=== PATIENT | female | born 1930 | race Caucasian/White ===

== ENCOUNTER 2016-03-06 12:57 | Outpatient (CLI) | payer MEDICARE, OTHER | END 2016-03-06 12:58 | disposition home or self-care (01) | DX: I82.502 Chronic embolism and thrombosis of unspecified deep veins of left lower extremity (principal); Z79.01 Long term (current) use of anticoagulants ==

== ENCOUNTER 2016-04-02 13:15 | Outpatient (CLI) | payer MEDICARE, OTHER | END 2016-04-02 13:16 | disposition home or self-care (01) | DX: I82.502 Chronic embolism and thrombosis of unspecified deep veins of left lower extremity (principal); Z79.01 Long term (current) use of anticoagulants ==

== ENCOUNTER 2016-05-21 12:34 | Outpatient (CLI) | payer MEDICARE, OTHER | END 2016-05-21 12:35 | disposition home or self-care (01) | DX: I82.502 Chronic embolism and thrombosis of unspecified deep veins of left lower extremity (principal); Z79.01 Long term (current) use of anticoagulants ==

== ENCOUNTER 2016-07-02 13:23 | Outpatient (CLI) | payer MEDICARE, OTHER | END 2016-07-02 13:24 | disposition home or self-care (01) | DX: I82.502 Chronic embolism and thrombosis of unspecified deep veins of left lower extremity (principal); Z79.01 Long term (current) use of anticoagulants ==

== ENCOUNTER 2016-08-17 12:41 | Outpatient (CLI) | payer MEDICARE, OTHER | END 2016-08-17 12:42 | disposition home or self-care (01) | LOC: LAB.F 12:41 | PROVIDERS: ATTEND Internal Medicine | DX: I82.502 Chronic embolism and thrombosis of unspecified deep veins of left lower extremity (principal) | CPT/HCPCS: 85610 ==

== ENCOUNTER 2016-10-02 11:06 | Outpatient (CLI) | payer MEDICARE, OTHER | END 2016-10-02 11:07 | disposition home or self-care (01) | LOC: LAB.F 11:06 | PROVIDERS: ATTEND Internal Medicine | DX: I82.502 Chronic embolism and thrombosis of unspecified deep veins of left lower extremity (principal) | CPT/HCPCS: 85610 ==

== ENCOUNTER 2016-10-10 11:31 | Outpatient (CLI) | payer MEDICARE, OTHER | END 2016-10-10 11:32 | disposition home or self-care (01) | LOC: LAB.F 11:31 | PROVIDERS: ATTEND Internal Medicine | DX: I82.502 Chronic embolism and thrombosis of unspecified deep veins of left lower extremity (principal); Z79.01 Long term (current) use of anticoagulants | CPT/HCPCS: 85610 ==

== ENCOUNTER 2016-11-14 10:55 | Outpatient (CLI) | payer MEDICARE, OTHER | END 2016-11-14 10:56 | disposition home or self-care (01) | LOC: LAB.F 10:55 | PROVIDERS: ATTEND Internal Medicine | DX: I82.502 Chronic embolism and thrombosis of unspecified deep veins of left lower extremity (principal); Z79.01 Long term (current) use of anticoagulants | CPT/HCPCS: 85610 ==

== ENCOUNTER 2017-01-02 13:39 | Outpatient (CLI) | payer MEDICARE, OTHER | END 2017-01-02 13:40 | disposition home or self-care (01) | LOC: LAB.F 13:39 | PROVIDERS: ATTEND Internal Medicine | DX: I82.502 Chronic embolism and thrombosis of unspecified deep veins of left lower extremity (principal); Z79.01 Long term (current) use of anticoagulants | CPT/HCPCS: 85610 ==

== ENCOUNTER 2017-01-28 13:28 | Outpatient (CLI) | payer MEDICARE, OTHER | END 2017-01-28 13:29 | disposition home or self-care (01) | LOC: LAB.F 13:28 | PROVIDERS: ATTEND Internal Medicine | DX: I82.502 Chronic embolism and thrombosis of unspecified deep veins of left lower extremity (principal); Z79.01 Long term (current) use of anticoagulants | CPT/HCPCS: 85610 ==

== ENCOUNTER 2017-02-05 12:31 | Outpatient (CLI) | payer MEDICARE, OTHER | END 2017-02-05 12:32 | disposition home or self-care (01) | LOC: LAB.F 12:31 | PROVIDERS: ATTEND Internal Medicine | DX: I82.502 Chronic embolism and thrombosis of unspecified deep veins of left lower extremity (principal); Z79.01 Long term (current) use of anticoagulants | CPT/HCPCS: 85610 ==

== ENCOUNTER 2017-02-11 13:38 | Outpatient (CLI) | payer MEDICARE, OTHER | END 2017-02-11 13:39 | disposition home or self-care (01) | LOC: LAB.F 13:38 | PROVIDERS: ATTEND Internal Medicine | DX: I82.502 Chronic embolism and thrombosis of unspecified deep veins of left lower extremity (principal); Z79.01 Long term (current) use of anticoagulants | CPT/HCPCS: 85610 ==

== ENCOUNTER 2017-03-15 13:06 | Outpatient (CLI) | payer MEDICARE, OTHER | END 2017-03-15 13:07 | disposition home or self-care (01) | LOC: LAB.F 13:06 | PROVIDERS: ATTEND Internal Medicine | DX: I82.502 Chronic embolism and thrombosis of unspecified deep veins of left lower extremity (principal); Z79.01 Long term (current) use of anticoagulants | CPT/HCPCS: 85610 ==

== ENCOUNTER 2017-04-01 13:58 | Outpatient (CLI) | payer MEDICARE, OTHER | END 2017-04-01 13:59 | disposition home or self-care (01) | LOC: LAB.F 13:58 | PROVIDERS: ATTEND Internal Medicine | DX: I82.502 Chronic embolism and thrombosis of unspecified deep veins of left lower extremity (principal); Z79.01 Long term (current) use of anticoagulants | CPT/HCPCS: 85610 ==

== ENCOUNTER 2017-05-07 13:35 | Outpatient (CLI) | payer MEDICARE, OTHER | END 2017-05-07 13:36 | disposition home or self-care (01) | LOC: LAB.F 13:35 | PROVIDERS: ATTEND Internal Medicine | DX: I82.502 Chronic embolism and thrombosis of unspecified deep veins of left lower extremity (principal); Z79.01 Long term (current) use of anticoagulants | CPT/HCPCS: 85610 ==

== ENCOUNTER 2017-05-13 13:04 | Outpatient (CLI) | payer MEDICARE, OTHER | END 2017-05-13 13:05 | disposition home or self-care (01) | LOC: LAB.F 13:04 | PROVIDERS: ATTEND Internal Medicine | DX: I82.502 Chronic embolism and thrombosis of unspecified deep veins of left lower extremity (principal); Z79.01 Long term (current) use of anticoagulants | CPT/HCPCS: 85610 ==

== ENCOUNTER 2017-06-14 12:59 | Outpatient (CLI) | payer MEDICARE, OTHER | END 2017-06-14 13:00 | disposition home or self-care (01) | LOC: LAB.F 12:59 | PROVIDERS: ATTEND Internal Medicine | DX: I82.502 Chronic embolism and thrombosis of unspecified deep veins of left lower extremity (principal); Z79.01 Long term (current) use of anticoagulants | CPT/HCPCS: 85610 ==

== ENCOUNTER 2017-07-24 14:21 | Outpatient (CLI) | payer MEDICARE, OTHER | END 2017-07-24 14:22 | disposition home or self-care (01) | LOC: LAB.F 14:21 | PROVIDERS: ATTEND Internal Medicine | DX: I82.502 Chronic embolism and thrombosis of unspecified deep veins of left lower extremity (principal); Z79.01 Long term (current) use of anticoagulants | CPT/HCPCS: 85610 ==

== ENCOUNTER 2017-08-29 11:25 | Outpatient (CLI) | payer MEDICARE, OTHER | END 2017-08-29 11:26 | disposition home or self-care (01) | LOC: LAB.F 11:25 | PROVIDERS: ATTEND Internal Medicine | DX: I82.502 Chronic embolism and thrombosis of unspecified deep veins of left lower extremity (principal); Z79.01 Long term (current) use of anticoagulants | CPT/HCPCS: 85610 ==

== ENCOUNTER 2017-10-17 13:37 | Outpatient (CLI) | payer MEDICARE, OTHER | END 2017-10-17 13:38 | disposition home or self-care (01) | LOC: LAB.F 13:37 | PROVIDERS: ATTEND Internal Medicine | DX: I82.502 Chronic embolism and thrombosis of unspecified deep veins of left lower extremity (principal); Z79.01 Long term (current) use of anticoagulants | CPT/HCPCS: 85610 ==

== ENCOUNTER 2017-10-25 11:01 | Outpatient (CLI) | payer MEDICARE, OTHER | END 2017-10-25 11:02 | disposition home or self-care (01) | LOC: LAB.F 11:01 | PROVIDERS: ATTEND Internal Medicine | DX: I82.502 Chronic embolism and thrombosis of unspecified deep veins of left lower extremity (principal); Z79.01 Long term (current) use of anticoagulants | CPT/HCPCS: 85610 ==

== ENCOUNTER 2017-11-05 08:00 | Outpatient (CLI) | payer MEDICARE, OTHER | END 2017-11-05 08:01 | disposition home or self-care (01) | LOC: LAB.F 08:00 | PROVIDERS: ATTEND Internal Medicine | DX: I82.502 Chronic embolism and thrombosis of unspecified deep veins of left lower extremity (principal); Z79.01 Long term (current) use of anticoagulants | CPT/HCPCS: 85610 ==

== ENCOUNTER 2017-11-11 12:58 | Outpatient (CLI) | payer MEDICARE, OTHER | END 2017-11-11 12:59 | disposition home or self-care (01) | LOC: LAB.F 12:58 | PROVIDERS: ATTEND Internal Medicine | DX: I82.502 Chronic embolism and thrombosis of unspecified deep veins of left lower extremity (principal); Z79.01 Long term (current) use of anticoagulants | CPT/HCPCS: 85610 ==

== ENCOUNTER 2017-12-23 14:13 | Outpatient (CLI) | payer MEDICARE, OTHER | END 2017-12-23 14:14 | disposition home or self-care (01) | LOC: LAB.F 14:13 | PROVIDERS: ATTEND Internal Medicine | DX: I82.502 Chronic embolism and thrombosis of unspecified deep veins of left lower extremity (principal); Z79.01 Long term (current) use of anticoagulants | CPT/HCPCS: 85610 ==

== ENCOUNTER 2018-01-21 14:06 | Outpatient (CLI) | payer MEDICARE, OTHER | END 2018-01-21 14:07 | disposition home or self-care (01) | LOC: LAB.F 14:06 | PROVIDERS: ATTEND Internal Medicine | DX: I82.502 Chronic embolism and thrombosis of unspecified deep veins of left lower extremity (principal); Z79.01 Long term (current) use of anticoagulants | CPT/HCPCS: 85610 ==

== ENCOUNTER 2018-01-27 14:33 | Outpatient (CLI) | payer MEDICARE, OTHER | END 2018-01-27 14:34 | disposition home or self-care (01) | LOC: LAB.F 14:33 | PROVIDERS: ATTEND Internal Medicine | DX: I82.502 Chronic embolism and thrombosis of unspecified deep veins of left lower extremity (principal); Z79.01 Long term (current) use of anticoagulants | CPT/HCPCS: 85610 ==

== ENCOUNTER 2018-02-03 11:13 | Outpatient (CLI) | payer MEDICARE, OTHER | END 2018-02-03 11:14 | disposition home or self-care (01) | LOC: LAB.F 11:13 | PROVIDERS: ATTEND Internal Medicine | DX: I82.502 Chronic embolism and thrombosis of unspecified deep veins of left lower extremity (principal); Z79.01 Long term (current) use of anticoagulants | CPT/HCPCS: 85610 ==

== ENCOUNTER 2018-02-11 10:28 | Outpatient (CLI) | payer MEDICARE, OTHER | END 2018-02-11 10:29 | disposition home or self-care (01) | LOC: LAB.F 10:28 | PROVIDERS: ATTEND Internal Medicine | DX: I82.502 Chronic embolism and thrombosis of unspecified deep veins of left lower extremity (principal); Z79.01 Long term (current) use of anticoagulants | CPT/HCPCS: 85610 ==

== ENCOUNTER 2018-03-28 13:27 | Outpatient (CLI) | payer MEDICARE, OTHER | END 2018-03-28 13:28 | disposition home or self-care (01) | LOC: LAB.F 13:27 | PROVIDERS: ATTEND Internal Medicine | DX: I82.502 Chronic embolism and thrombosis of unspecified deep veins of left lower extremity (principal); Z79.01 Long term (current) use of anticoagulants | CPT/HCPCS: 85610 ==

== ENCOUNTER 2018-05-26 14:45 | Outpatient (CLI) | payer MEDICARE, OTHER | END 2018-05-26 14:46 | disposition home or self-care (01) | LOC: LAB.F 14:45 | PROVIDERS: ATTEND Internal Medicine | DX: I82.502 Chronic embolism and thrombosis of unspecified deep veins of left lower extremity (principal); Z79.01 Long term (current) use of anticoagulants | CPT/HCPCS: 85610 ==

== ENCOUNTER 2019-08-28 11:52 | Outpatient (CLI) | payer MEDICARE, OTHER ==
[2019-08-28 15:38] LABS: CALCIUM 10.1 mg/dL (8.5-10.3)
== END 2019-08-28 11:53 | disposition home or self-care (01) ==
LOC: LAB.S 11:52
PROVIDERS: ATTEND Internal Medicine
DX: N28.9 Disorder of kidney and ureter, unspecified (principal); Z86.711 Personal history of pulmonary embolism
CPT/HCPCS: 36415; 80048; 85610

== ENCOUNTER 2020-02-12 13:19 | Outpatient (CLI) | payer MEDICARE, OTHER ==
[2020-02-12 19:55] LABS: BASOPHILS # (AUTO) 0.1 10^3/uL (0.0-0.1); BASOPHILS % (AUTO) 0.7 %; EOSINOPHILS # (AUTO) 0.3 10^3/uL (0.0-0.7); EOSINOPHILS % (AUTO) 4.5 %; HGB - HEMOGLOBIN 10.2 g/dL (12.0-16.0); LYMPHOCYTES # (AUTO) 2.1 10^3/uL (1.5-3.5); LYMPHOCYTES % (AUTO) 30.9 %; MEAN CORPUSCULAR HGB CONC 30.1 g/dL (32.0-36.0); MEAN CORPUSCULAR VOLUME 93.1 fL (81.0-99.0); MEAN PLATELET VOLUME 10.2 fL (7.9-10.8); MONOCYTES # (AUTO) 0.5 10^3/uL (0.0-1.0); MONOCYTES % (AUTO) 8.1 %; NEUTROPHILS # (AUTO) 3.7 10^3/uL (1.5-6.6); NEUTROPHILS % (AUTO) 55.5 %; PLT - PLATELET COUNT 269 10^3/uL (130-450); RED BLOOD COUNT 3.64 10^6/uL (4.20-5.40); RED CELL DISTRIBUTION WIDTH 13.2 % (12.0-15.0); WHITE BLOOD COUNT 6.7 x10^3/uL (4.8-10.8)
[2020-02-12 20:21] LABS: % IRON SATURATION 11 % (20-50); IRON 46 ug/dL (28-170); TOTAL IRON BINDING CAPACITY 406 ug/dL (250-450); TRANSFERRIN 290 mg/dL (192-382)
== END 2020-02-12 13:20 | disposition home or self-care (01) ==
LOC: LAB.S 13:19
PROVIDERS: ATTEND Internal Medicine
DX: D64.9 Anemia, unspecified (principal)
CPT/HCPCS: 36415; 82728; 83540; 84466; 85025

== ENCOUNTER 2020-06-19 21:42 | Observation (INO) | payer MEDICARE, OTHER ==
--- OUTSIDE RECORDS SUMMARY | 2020-06-19 21:46 | EXTERNAL MEDICAL SUMMARY RPT | Continuity of Care Document ---
:1930 Demographics Phone Unavailable Preferred Language Unknown Marital Status Unknown Hoahaoism Affiliation Unknown Race Unknown Ethnic Group Unknown Author Organization [facility] Address [address] [phone] Phone Problems date description facility [id number] ABDOMINAL; BACK PAIN [employer] Social History date description facility [id number]
--- OUTSIDE RECORDS SUMMARY | 2020-06-19 21:50 | EXTERNAL MEDICAL SUMMARY RPT | Continuity of Care Document ---
:1930 Demographics Phone Unavailable Preferred Language Unknown Marital Status Unknown Congregational Affiliation Unknown Race Unknown Ethnic Group Unknown Author Organization [facility] Address [address] [phone] Phone Problems date description facility [id number] ABDOMINAL; BACK PAIN [employer] Social History date description facility [id number]
[2020-06-19 22:02] LABS: BILIRUBIN,URINE NEGATIVE (NEGATIVE); GLUCOSE, URINE (UA) NEGATIVE (NEGATIVE); KETONES,URINE (UA) 15 mg/dL (NEGATIVE); LEUKOCYTE ESTERASE, URINE MODERATE (NEGATIVE); NITRITE,URINE NEGATIVE (NEGATIVE); OCCULT BLOOD,URINE LARGE (NEGATIVE); PROTEIN,URINE TRACE mg/dL (NEGATIVE); UROBILINOGEN,URINE 0.2 (NORMAL) E.U./dL (NORMAL)
[2020-06-19 22:03] LABS: CLARITY,URINE CLOUDY (CLEAR)
--- NOTE | 2020-06-19 22:08 | ED Physician Documentation ---
PD HPI ABD PAIN - Stated complaint Stated Complaint: ABD PX - Chief complaint Chief Complaint: Abd Pain - History obtained from History obtained from: Patient - History of Present Illness Timing - onset: Today, Last night Timing - duration: Days (1) Timing - details: Gradual onset, Still present Quality: Cramping, Aching, Pain (suprapubic area and to right flank) Location: Suprapubic Radiation: Right flank Improved by: No: Vomiting Worsened by: No: Moving, Breathing Associated symptoms: Fever (to 102 at home today), Nausea, Vomiting. No: Hematemesis, Dysuria, Hematuria, Chest pain, Vaginal bleeding Similar symptoms before: Has not had sx before Recently seen: Surgery (had transvaginal uterine/bladder suspension 9 days ago at [facility] and was doing okay until today.) Review of Systems Constitutional: reports: Fever, Chills, Myalgias Nose: denies: Rhinorrhea / runny nose, Congestion Throat: denies: Sore throat Respiratory: denies: Cough GI: reports: Abdominal Pain, Nausea, Vomiting. denies: Diarrhea : reports: Frequency. denies: Dysuria Skin: denies: Rash, Lesions Neurologic: reports: Generalized weakness. denies: Altered mental status, Headache PD PAST MEDICAL HISTORY - Past Medical History Cardiovascular: Hypertension, Atrial fibrillation Respiratory: Asthma, Other GI: Diverticulitis : None HEENT: None Musculoskeletal: None Derm: None - Past Surgical History Past Surgical History: Yes General: Appendectomy HEENT: Tonsil/Adenoidectomy - Present Medications Home Medications: Ambulatory Orders Medication Instructions Recorded Confirmed Cholecalciferol (Vitamin D3) 1 tab PO DAILY 01/07/17 06/19/20 [Vitamin D3] Mometasone/Formoterol [Dulera 100 1 inh PO DAILY 01/07/17 06/19/20 Mcg/5 Mcg Inhaler] Verapamil HCl [Verelan] 360 mg PO DAILY 01/07/17 06/19/20 Apixaban [Eliquis] 2.5 mg PO DAILY PM 06/19/20 06/19/20 Olmesartan Medoxomil [Benicar] 5 mg PO DAILY 06/19/20 06/19/20 Pravastatin [Pravachol] 20 mg PO HS 06/19/20 06/19/20 Prazosin [Minipress] 1 mg PO DAILY 06/19/20 06/19/20 - Allergies Allergies/Adverse Reactions: Allergies Allergy/AdvReac Type Severity Reaction Status Date / Time No Known Drug Allergies Allergy Verified 01/07/17 13:48 - Social History Does the pt smoke?: No Smoking Status: Former smoker Does the pt drink ETOH?: No Does the pt have substance abuse?: No PD ED PE NORMAL - Vitals Vital signs reviewed: Yes - General General: Alert and oriented X 3, Well developed/nourished, Other (appears in discomfort from pain and nausea. Holding emesis bag. ) - HEENT HEENT: Pharynx benign - Neck Neck: Supple, no meningeal sign, No adenopathy - Cardiac Cardiac: RRR, No murmur - Respiratory Respiratory: Clear bilaterally - Abdomen Abdomen: Normal bowel sounds, Soft, Non distended, No organomegaly, Other (some tenderness suprapubic area. No guarding nor percussion tender. Not distended. ) - Female Female : Deferred - Back Back: Other (some right CVA tenderness. ) - Derm Derm: Normal color, Warm and dry - Extremities Extremities: No deformity, No tenderness to palpate - Neuro Neuro: Alert and oriented X 3, No motor deficit, Normal speech Results - Vitals Vitals: Vital Signs - 24 hr 06/19/20 06/19/20 06/19/20 21:53 22:50 23:00 Temperature 36.6 C Heart Rate 86 Respiratory 22 Rate Blood Pressure 162/94 H O2 Saturation 100 84 L 95 Oxygen O2 Source Nasal cannula - Labs Labs: Laboratory Tests 06/19/20 06/19/20 06/19/20 21:57 22:40 22:40 WBC 15.2 H RBC 3.52 L Hgb 10.2 L Hct 31.4 L MCV 89.2 MCH 29.0 MCHC 32.5 RDW 12.5 Plt Count 260 MPV 9.5 Neut # (Auto) 12.8 H Lymph # (Auto) 1.0 L [place] # (Auto) 1.2 H Eos # (Auto) 0.0 Baso # (Auto) 0.0 Absolute Nucleated RBC 0.00 Nucleated RBC % 0.0 PT INR Sodium 139 Potassium 4.3 Chloride 106 Carbon Dioxide 22 Anion Gap 11.0 BUN 18 Creatinine 1.0 Estimated GFR (MDRD) 52 L Glucose 127 H Lactic Acid Calcium 9.8 Total Bilirubin 0.9 AST 20 ALT 13 Alkaline Phosphatase 81 Total Protein 7.0 Albumin 4.1 Globulin 2.9 Albumin/Globulin Ratio 1.4 Lipase 16 L Urine Color YELLOW Urine Clarity CLOUDY Urine pH 7.0 Ur Specific [place] 1.020 Urine Protein TRACE Urine Glucose (UA) NEGATIVE Urine Ketones 15 H Urine Occult Blood LARGE H Urine Nitrite NEGATIVE Urine Bilirubin NEGATIVE Urine Urobilinogen 0.2 (NORMAL) Ur Leukocyte Esterase MODERATE H Urine RBC TNTC H Urine WBC >25 H Ur Squamous Epith Cells FEW Squamous Urine Bacteria Few Ur Microscopic Review INDICATED Urine Culture Comments INDICATED Nasal Adenovirus (PCR) Nasal B. parapertussis DNA (PCR) Nasal Coronavir 229E PCR Nasal Coronavir HKU1 PCR Nasal Coronavir NL63 PCR Nasal Coronavir OC43 PCR Nasal Enterovir/Rhinovir PCR Nasal Influenza B PCR Nasal Influenza A PCR Nasal Parainfluen 1 PCR Nasal Parainfluen 2 PCR Nasal Parainfluen 3 PCR Nasal Parainfluen 4 PCR Nasal RSV (PCR) Nasal B.pertussis DNA PCR Nasal C.pneumoniae (PCR) Jem Human Metapneumo PCR Nasal M.pneumoniae (PCR) Nasal SARS-CoV-2 (PCR) 06/19/20 06/19/20 06/19/20 22:40 22:40 23:06 WBC RBC Hgb Hct MCV MCH MCHC RDW Plt Count MPV Neut # (Auto) Lymph # (Auto) [place] # (Auto) Eos # (Auto) Baso # (Auto) Absolute Nucleated RBC Nucleated RBC % PT 16.6 H INR 1.5 H Sodium Potassium Chloride Carbon Dioxide Anion Gap BUN Creatinine Estimated GFR (MDRD) Glucose Lactic Acid 1.6 Calcium Total Bilirubin AST ALT Alkaline Phosphatase Total Protein Albumin Globulin Albumin/Globulin Ratio Lipase Urine Color Urine Clarity Urine pH Ur Specific [place] Urine Protein Urine Glucose (UA) Urine Ketones Urine Occult Blood Urine Nitrite Urine Bilirubin Urine Urobilinogen Ur Leukocyte Esterase Urine RBC Urine WBC Ur Squamous Epith Cells Urine Bacteria Ur Microscopic Review Urine Culture Comments Nasal Adenovirus (PCR) NOT DETECTED Nasal B. parapertussis DNA (PCR) NOT DETECTED Nasal Coronavir 229E PCR NOT DETECTED Nasal Coronavir HKU1 PCR NOT DETECTED Nasal Coronavir NL63 PCR NOT DETECTED Nasal Coronavir OC43 PCR NOT DETECTED Nasal Enterovir/Rhinovir PCR NOT DETECTED Nasal Influenza B PCR NOT DETECTED Nasal Influenza A PCR NOT DETECTED Nasal Parainfluen 1 PCR NOT DETECTED Nasal Parainfluen 2 PCR NOT DETECTED Nasal Parainfluen 3 PCR NOT DETECTED Nasal Parainfluen 4 PCR NOT DETECTED Nasal RSV (PCR) NOT DETECTED Nasal B.pertussis DNA PCR NOT DETECTED Nasal C.pneumoniae (PCR) NOT DETECTED Jem Human Metapneumo PCR NOT DETECTED Nasal M.pneumoniae (PCR) NOT DETECTED Nasal SARS-CoV-2 (PCR) NOT DETECTED - Rads (name of study) abd/pelvic CT Radiology: Prelim report reviewed (No acute process in pelvic area), See rad report PD MEDICAL DECISION MAKING - ED course Complexity details: re-evaluated patient (pain and nausea improved with meds. She had fever, leukocytosis, pain and vomiting. Has UTI by UA. No abscess or such by CT. ), considered differential, d/w patient Departure - Departure Disposition: ED Place in Observation Clinical Impression: Post-operative state UTI (urinary tract infection) Qualifiers: Urinary tract infection type: acute pyelonephritis Qualified Code(s): N10 - Acute pyelonephritis Nausea and vomiting Qualifiers: Vomiting type: unspecified Vomiting Intractability: non-intractable Qualified Code(s): R11.2 - Nausea with vomiting, unspecified Condition: Stable Record reviewed to determine appropriate education?: Yes Discharge Date/Time: 06/20/20 00:40
[2020-06-19 22:09] LABS: BACTERIA,URINE Few /HPF (None Seen); RBC,URINE TNTC /HPF (0-5); SQUAMOUS EPITHELIAL CELL,UR FEW Squamous (<= Few); WBC,URINE >25 /HPF (0-5)
[2020-06-19] MEDS ORDERED: KETOROLAC 15 MG/ML VIAL IVP STA (22:21)
[2020-06-19] MEDS ORDERED: MORPHINE 2 MG/ML CARPUJECT IVP STA (22:21)
[2020-06-19] MEDS ORDERED: ONDANSETRON 4 MG/2 ML VIAL IVP STA (22:21)
[2020-06-19] MEDS ORDERED: cefTRIAXone 1 GM VIAL IVP STA (22:21)
[2020-06-19] MEDS ORDERED: SODIUM CHLORIDE 0.9% 1,000 ML IV STA (22:21)
[2020-06-19] MEDS ORDERED: IOPAMIDOL-300 100 ML VIAL ONE (22:35)
[2020-06-19 22:46] LABS: BASOPHILS % (AUTO) 0.3 %; EOSINOPHILS % (AUTO) 0.3 %; HCT - HEMATOCRIT 31.4 % (37.0-47.0); HGB - HEMOGLOBIN 10.2 g/dL (12.0-16.0); LYMPHOCYTES % (AUTO) 6.5 %; MEAN CORPUSCULAR HGB CONC 32.5 g/dL (32.0-36.0); MEAN CORPUSCULAR VOLUME 89.2 fL (81.0-99.0); MEAN PLATELET VOLUME 9.5 fL (7.9-10.8); MONOCYTES # (AUTO) 1.2 10^3/uL (0.0-1.0); MONOCYTES % (AUTO) 8.1 %; NEUTROPHILS # (AUTO) 12.8 10^3/uL (1.5-6.6); NEUTROPHILS % (AUTO) 84.1 %; PLT - PLATELET COUNT 260 10^3/uL (130-450); RED BLOOD COUNT 3.52 10^6/uL (4.20-5.40); RED CELL DISTRIBUTION WIDTH 12.5 % (12.0-15.0); WHITE BLOOD COUNT 15.2 x10^3/uL (4.8-10.8)
[2020-06-19 22:53] LABS: INR 1.5 (0.8-1.2); PT - PROTHROMBIN TIME 16.6 secs (9.9-12.6)
[2020-06-19 23:00] LABS: ALBUMIN 4.1 g/dL (3.2-5.5); ALBUMIN/GLOBULIN RATIO 1.4 (1.0-2.2); BILIRUBIN,TOTAL 0.9 mg/dL (0.2-1.0); CALCIUM 9.8 mg/dL (8.5-10.3); POTASSIUM 4.3 mmol/L (3.5-5.0)
[2020-06-19] MEDS ORDERED: IOPAMIDOL-300 100 ML VIAL IVP ONE (23:39)
[2020-06-20] MEDS ORDERED: MORPHINE 2 MG/ML CARPUJECT IVP PRN (00:02)
[2020-06-20] MEDS ORDERED: ONDANSETRON ODT 4 MG TABLET TL PRN (00:02)
[2020-06-20] MEDS ORDERED: SODIUM CHLORIDE FLUSH 0.9% 10 ML SYRINGE IVP PRN (00:02)
[2020-06-20] MEDS ORDERED: ACETAMINOPHEN 325 MG TABLET PO PRN (00:02)
[2020-06-20] MEDS ORDERED: oxyCODONE 5 MG TABLET PO PRN (00:02)
[2020-06-20 00:06] LABS: B. PARAPERTUSSIS- RESP PCR PAN NOT DETECTED; B. PERTUSSIS- RESP PCR PANEL NOT DETECTED; C. PNEUMONIAE- RESP PCR PANEL NOT DETECTED; CORONAVIRUS 229E-RESP PCR NOT DETECTED; CORONAVIRUS HKU1-RESP PCR NOT DETECTED; CORONAVIRUS NL63-RESP PCR NOT DETECTED; CORONAVIRUS OC43-RESP PCR NOT DETECTED; HUMAN METAPNEUMOVIRUS NOT DETECTED; INFLUENZA A- RESP PCR PANEL NOT DETECTED; INFLUENZA B - RESP PCR PANEL NOT DETECTED; M. PNEUMONIAE- RESP PCR PANEL NOT DETECTED; PARAINFLUENZA VIRUS 1 NOT DETECTED; PARAINFLUENZA VIRUS 2 NOT DETECTED; PARAINFLUENZA VIRUS 3 NOT DETECTED; PARAINFLUENZA VIRUS 4 NOT DETECTED; RHINOVIRUS/ENTEROVIRUS NOT DETECTED; RSV- RESP PCR PANEL NOT DETECTED; SARS-CoV-2 -RESP PCR PANEL NOT DETECTED
--- OUTSIDE RECORDS SUMMARY | 2020-06-20 00:17 | EXTERNAL MEDICAL SUMMARY RPT | Continuity of Care Document ---
:1930 Demographics Phone Unavailable Preferred Language Unknown Marital Status Unknown Zoroastrian Affiliation Unknown Race Unknown Ethnic Group Unknown Author Organization [facility] Address [address] [place] [address] Phone Problems date description facility [id number] ABDOMINAL; BACK PAIN [employer] Social History date description facility [phone]
[2020-06-20] MEDS: SODIUM CHLORIDE FLUSH 0.9% 10 ML SYRINGE IVP SCH ×2 (00:50→09:10)
[2020-06-20] MEDS ORDERED: LACTATED RINGERS 1,000 ML IV SCH (01:00)
--- NOTE | 2020-06-20 01:36 | HISTORY & PHYSICAL EXAMINATION ---
Chief Complaint - Chief Complaint Chief Complaint: Abdominal pain History of Present Illness - Admitted From Admitted From:: Home - History Obtained From Records Reviewed: [facility] History obtained from: Patient, Discussion with ED provider Exam Limitations: None - History of Present Illness HPI Comment/Other: Rajni is a pleasant 89 y.o. female who presented to the emergency department this evening for worsening left lower abdominal px with radiation to left lower back and nausea and vomiting. PMH significant for PE, HTN, COPD, and atrial fibrillation. Pt states episode began last night when she restless and unable to sleep. Awoke to signficant abdominal pain, chills, fever, n/v. Pt took 2 tab of tylenol and symptoms subsided and patient slept for the remainder of the day, which is atypical for her. Pt was supposed to have 2 wk follow up with Dr. Mg s/p uterine prolapse repair with cystocele. Prior to going back to sleep this morning she called leaving a message for Dr. Mg's answering service. This evening Dr. Mg called back and suggested Rajni come in to be evaluated in the ED. On presentation to the ED she had abd pain and n/v which was relieved with IV morphine and zofran. CBC showed elevated WBC, and UA was positive for moderate leuks, WBC >25 occult blood and ketones. She denies chest pain or pressure, SOB, dizziness, or pain radiation. Of note she did have desaturation on RA with SaO2 88-90% and was placed on supplemental oxygen. Pt has known COPD on home O2 use at night at baseline. History - Past Medical History Cardiovascular: reports: Hypertension, Pulmonary embolism, Atrial fibrillation Respiratory: reports: Asthma, COPD, Other (2lnc of O2 use at night) Neuro: reports: None GI: reports: Diverticulitis WARP PLACER: reports: Other (Uterine prolapse with cystocele repair 06/02/20) : reports: Incontinence, Frequency, Other () HEENT: reports: None, Chronic vision loss, Other (bilateral Cataract correction) Psych: reports: None Musculoskeletal: reports: None Derm: reports: None MRSA Hx?: No Other Past Medical History: PE,GLASSES, uterine prolapse - Past Surgical History General: reports: Cholecystectomy, Appendectomy /WARP PLACER: reports: Other (Cystocele repair of uterine prolapse) HEENT: reports: Cataracts, Tonsil/Adenoidectomy - Family & Social History Family History: Mother: ZANDER, Father: Cancer Living arrangement: At home Living Situation: With spouse/s.o. 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 - Substance History Use: Uses substance without health or social issues: Tobacco (Cannot remember how much she smoked, but quit in 1975), Alcohol (1-2 glasses of wine a week) Abuse: Recurrent use of substance despite neg consequences: NONE - POLST Patient has POLST: Yes POLST Status: DNR Meds/Allgy - Home Medications Home Medications: Ambulatory Orders Medication Instructions Recorded Confirmed Cholecalciferol (Vitamin D3) 1 tab PO DAILY 01/07/17 06/19/20 [Vitamin D3] Mometasone/Formoterol [Dulera 100 1 inh PO DAILY 01/07/17 06/19/20 Mcg/5 Mcg Inhaler] Verapamil HCl [Verelan] 360 mg PO DAILY 01/07/17 06/19/20 Apixaban [Eliquis] 2.5 mg PO DAILY PM 06/19/20 06/19/20 Olmesartan Medoxomil [Benicar] 5 mg PO DAILY 06/19/20 06/19/20 Pravastatin [Pravachol] 20 mg PO HS 06/19/20 06/19/20 Prazosin [Minipress] 1 mg PO DAILY 06/19/20 06/19/20 - Allergies Allergies/Adverse Reactions: Allergies Allergy/AdvReac Type Severity Reaction Status Date / Time No Known Drug Allergies Allergy Verified 01/07/17 13:48 Review of Systems - Constitutional Constitutional: reports: Fever, Chills, Weakness - Eyes Eyes: reports: Other (negative) - Ears, Nose & Throat Ears, Nose & Throat: reports: Other (negative) - Cardiovascular Cariovascular: reports: Exertional dyspnea. denies: Irregular heart rate, Palpitations, Chest pain, Edema - Respiratory Respiratory: reports: Cough (chronic intermitent non-productive), SOB with exertion, Other (Home O2 at night) - Gastrointestinal Gastrointestinal: reports: Abdominal pain, Nausea, Vomiting. denies: Constipation, Diarrhea, Change in bowel habits - Genitourinary Genitourinary: reports: Urgency, Incontinence. denies: Dysuria, Hematuria, Nocturia - Musculoskeletal Musculoskeletal: reports: Back pain. 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 denies: Bruising Prior Level of Functionality: Pt lives at home alone with her Ryne. She has no current mobility limitations Exam - Vital Signs Reviewed Vital Signs: Yes Vital Signs: Vital Signs x48h Temp Pulse Pulse Resp BP BP Pulse Ox 06/20/20 00:44 37.8 C 91 16 125/107 H 95 06/20/20 00:37 36.7 C 95 18 151/64 H 94 06/19/20 23:00 95 06/19/20 22:50 84 L 06/19/20 21:53 36.6 C 86 22 162/94 H 100 - Physical Exam General Appearance: positive: No acute distress, Alert, Other (Pt is well nurished measuring 5'2" 69kg) Eyes Bilateral: positive: Normal inspection ENT: positive: ENT inspection nml Neck: positive: Nml inspection Respiratory: positive: Chest non-tender, Breath sounds nml Cardiovascular: positive: Regular rate & rhythm Peripheral Pulses: positive: 2+ Abdomen: positive: No organomegaly, Nml bowel sounds, Tenderness, Other (tenderness localized to LLQ) Back: positive: CVA tenderness (L) Skin: positive: Color nml, No rash Extremities: positive: Non-tender, Full ROM, Nml appearance Neurologic/Psychiatric: positive: Oriented x3, CN's nml (2-12), Motor nml, Sensation nml, Mood/affect nml Conclusion/Plan - Problem List (1) UTI (urinary tract infection) Conclusion/Plan: Pt recently had recent cystocele repair. POA compaints of fever, chills, left abdominal and flank. In the ED has an elevated WBC and UA with moderate leuks elevated white cells, occult blood and ketones. Likely acute plyonephritis. Pt received rocephrin 1g IV and receiving IV hydration. Has orders to continue IV if not improved. Suspect discharge tomorrow. Plan discharge with cipro or levofloxacin PO course. Qualifiers: Urinary tract infection type: acute pyelonephritis Qualified Code(s): N10 - Acute pyelonephritis (2) Hypertension Conclusion/Plan: Normotensive currently. Continue to monitor vitals and provide PRN meds if evelyne ent becomes hypertensive. Will continue home dose antihypertensives. Qualifiers: Hypertension type: essential hypertension Qualified Code(s): I10 - Essential (primary) hypertension (3) COPD (chronic obstructive pulmonary disease) Conclusion/Plan: No s/s of exacerbation. History of chronic respiratory failure with hypoxia stable and unchanged. Pt normally on 2lnc at home at night. Will continue to monitor oxygen saturation during admission. Will continue home meds and defer to outpatient management. Qualifiers: COPD type: unspecified COPD Qualified Code(s): J44.9 - Chronic obstructive pulmonary disease, unspecified (4) Atrial fibrillation Conclusion/Plan: Pt has history of atrial fibrillation per chart review, but after discussion with patient she can not recall any diagnosis of AF and is currently in NSR on 12-EKG. Will continue to monitor for arrhythmia. Will request records from PCP as well to confirm diagnosis and compare previous EKG. Qualifiers: Atrial fibrillation type: unspecified Qualified Code(s): I48.91 - Unspecif ied atrial fibrillation (5) Acute pain Conclusion/Plan: Likely related to UTI. IV and PO PRN meds ordered. - Lab Results Lab results reviewed: Yes Fish Bones: 06/19/20 22:40 06/19/20 22:40 - EKG Results EKG Interpreted Independently: Yes EKG Comparison: No prior EKG EKG Findings: NSR
[2020-06-20] MEDS ORDERED: APIXABAN 2.5 MG TABLET PO SCH ×2 (03:00→09:00)
[2020-06-20 05:45] LABS: BASOPHILS # (AUTO) 0.1 10^3/uL (0.0-0.1); BASOPHILS % (AUTO) 0.3 %; HCT - HEMATOCRIT 27.3 % (37.0-47.0); HGB - HEMOGLOBIN 8.6 g/dL (12.0-16.0); LYMPHOCYTES # (AUTO) 1.5 10^3/uL (1.5-3.5); LYMPHOCYTES % (AUTO) 9.8 %; MEAN CORPUSCULAR HEMOGLOBIN 28.7 pg (27.0-31.0); MEAN CORPUSCULAR HGB CONC 31.5 g/dL (32.0-36.0); MONOCYTES # (AUTO) 1.3 10^3/uL (0.0-1.0); MONOCYTES % (AUTO) 8.1 %; NEUTROPHILS # (AUTO) 12.5 10^3/uL (1.5-6.6); NEUTROPHILS % (AUTO) 80.7 %; PLT - PLATELET COUNT 225 10^3/uL (130-450); RED CELL DISTRIBUTION WIDTH 12.7 % (12.0-15.0); WHITE BLOOD COUNT 15.5 x10^3/uL (4.8-10.8)
[2020-06-20 05:55] LABS: CALCIUM 8.7 mg/dL (8.5-10.3); CREATININE 0.9 mg/dL (0.4-1.0); POTASSIUM 4.7 mmol/L (3.5-5.0)
--- NOTE | 2020-06-20 08:54 | CT Report ---
PROCEDURE: Abdomen/Pelvis W INDICATIONS: post op uterine suspension; pelvic pain CONTRAST: IV CONTRAST: Isovue 300 ml: 100 PO CONTRAST: *NO PO CONTRAST TECHNIQUE: After the administration of nonionic contrast, 5 mm thick sections acquired from the diaphragms to th e symphysis. 5 mm thick coronal and sagittal reformats were acquired. For radiation dose reduction, the following was used: automated exposure control, adjustment of mA and/or kV according to patient size. COMPARISON: Prior similar CT 01/07/2017.. FINDINGS: Image quality: Excellent. ABDOMEN: Lung bases: Lung bases are clear. Heart size is normal. Solid organs: Liver and spleen are normal in size and enhancement. Gallbladder is not clearly visua lized as was previously the case and may be absent without surgical clips, but also could be diminuti ve Biliary system is non dilated. Pancreas enhances normally. No adrenal nodules. Kidneys demonst rate normal size and enhancement, without hydronephrosis. Peritoneum and bowel: Bowel loops demonstrate normal wall thickness and caliber. No free fluid or a ir. Nodes and vessels: No retroperitoneal or mesenteric adenopathy by size criteria. Aorta and inferior vena cava are normal in size. Miscellaneous: No ventral hernias other than a small periumbilical herniation of a small amount of o mentum, showing no sign of incarceration or strangulation.. PELVIS: Genitourinary: Bladder wall thickness is normal. Miscellaneous: No inguinal hernias or adenopathy. Bones: No suspicious bony lesions. No vertebral body compression fractures. IMPRESSION: A source of current pelvic pain is not seen. No postoperative complication seen. Uterin e position appears normal. As noted above the gallbladder is not well visualized and may be absent wi thout use of metallic surgical clips or possibly diminutive as a normal anatomic variant. Reviewed by: Brody Fernandes MD on 06/20/2020 8:52 AM PDT Approved by: Brody Fernandes MD on 06/20/2020 8:52 AM PDT Station ID: [id number]
[2020-06-20] MEDS ORDERED: PRAZOSIN 1 MG CAPSULE PO SCH ×2 (09:00→21:00)
[2020-06-20] MEDS ORDERED: VERAPAMIL ER 180 MG TABLET PO SCH (09:00)
--- NOTE | 2020-06-20 10:55 | PHARMACY PROGRESS NOTE ---
- Best Possible Medication History Admit Date and Time: 06/20/20 0002 Processed by: Pharmacy Medication History completed: Yes Patient Interview: Completed Secondary Source(s): Written medication list, Prescription bottles, Pharmacy records, Insurance records, Previous admit records As the person ultimately responsible for medication therapy, providers are able to order a medication from an existing home medication list in [facility] via the "Reconcile Routine" prior to Confirmation of that medication by lan support specialist. Such practice is discouraged except when the physician, in their clinical judgment, deems that a medical need exists for a medication without regard to previous use.
[2020-06-20 12:55] LABS: BASOPHILS % (AUTO) 0.3 %; EOSINOPHILS # (AUTO) 0.2 10^3/uL (0.0-0.7); EOSINOPHILS % (AUTO) 1.3 %; HCT - HEMATOCRIT 31.3 % (37.0-47.0); HGB - HEMOGLOBIN 9.6 g/dL (12.0-16.0); LYMPHOCYTES % (AUTO) 15.7 %; MEAN CORPUSCULAR HEMOGLOBIN 28.7 pg (27.0-31.0); MEAN CORPUSCULAR HGB CONC 30.7 g/dL (32.0-36.0); MEAN CORPUSCULAR VOLUME 93.7 fL (81.0-99.0); MEAN PLATELET VOLUME 9.8 fL (7.9-10.8); MONOCYTES # (AUTO) 1.1 10^3/uL (0.0-1.0); MONOCYTES % (AUTO) 8.5 %; NEUTROPHILS # (AUTO) 9.2 10^3/uL (1.5-6.6); NEUTROPHILS % (AUTO) 73.9 %; PLT - PLATELET COUNT 217 10^3/uL (130-450); RED BLOOD COUNT 3.34 10^6/uL (4.20-5.40); RED CELL DISTRIBUTION WIDTH 12.8 % (12.0-15.0); WHITE BLOOD COUNT 12.4 x10^3/uL (4.8-10.8)
--- NOTE | 2020-06-20 13:58 | DISCHARGE SUMMARY ---
Discharge Summary Admit Date: 06/20/20 Discharge Date: 06/20/20 Discharging Provider: Miranda diallo Primary Care Provider: Alison Wilson Code Status: Do Not Attempt Resuscitation Condition at Discharge: Stable Discharge Disposition: 01 Home, Self Care - DIAGNOSES Admission Diagnoses: UTI Hypertension COPD Atrial fibrillation Acute pain Discharge Diagnoses with Status of Each Condition: UTI: Acute. Patient discharged with a prescription of 1 week of cefdinir Hypertension: Chronic COPD: Chronic Atrial fibrillation: Chronic Acute pain. Secondary to UTI. Improves/resolved - HPI History of Present Illness: Per HPI: Rajni is a pleasant 89 y.o. female who presented to the emergency department this evening for worsening left lower abdominal px with radiation to left lower back and nausea and vomiting. PMH significant for PE, HTN, COPD, and atrial fibrillation. Pt states episode began last night when she restless and unable to sleep. Awoke to signficant abdominal pain, chills, fever, n/v. Pt took 2 tab of tylenol and symptoms subsided and patient slept for the remainder of the day, which is atypical for her. Pt was supposed to have 2 wk follow up with Dr. Mg s/p uterine prolapse repair with cystocele. Prior to going back to sleep this morning she called leaving a message for Dr. Mg's answering service. This evening Dr. Mg called back and suggested Rajni come in to be evaluated in the ED. On presentation to the ED she had abd pain and n/v which was relieved with IV morphine and zofran. CBC showed elevated WBC, and UA was positive for moderate leuks, WBC >25 occult blood and ketones. She denies chest pain or pressure, SOB, dizziness, or pain radiation. Of note she did have desaturation on RA with SaO2 88-90% and was placed on supplemental oxygen. Pt has known COPD on home O2 use at night at baseline. Patient was started on Rocephin IV and also received IV hydration with normal saline. She was administered pain medication during her hospital stay. She was afebrile throughout her hospital stay. Repeat CBC around 1pm showed a white count of 12.5 Consequently she was discharged home with a prescription of cefdinir 300 mg p.o. twice daily x7 days. If the urine cultures subsequently indicate the need for change of antibiotic the patient will be contacted. - ALLERGIES Allergies/Adverse Reactions: Allergies Allergy/AdvReac Type Severity Reaction Status Date / Time No Known Drug Allergies Allergy Verified 01/07/17 13:48 - MEDICATIONS Home Medications: Ambulatory Orders Medication Instructions Recorded Confirmed Cholecalciferol (Vitamin D3) 1,000 unit PO DAILY 01/07/17 06/20/20 [Vitamin D3] Mometasone/Formoterol [Dulera 100 2 puffs INH BID 01/07/17 06/20/20 Mcg-5 Mcg Inhaler] Verapamil HCl [Verelan] 360 mg PO DAILY 01/07/17 06/19/20 Apixaban [Eliquis] 2.5 mg PO BID 06/19/20 06/20/20 Pravastatin [Pravachol] 20 mg PO HS 06/19/20 06/19/20 Acetaminophen [Acetaminophen Extra 1,000 mg PO BID PRN 06/20/20 06/20/20 Strength] Albuterol Sulf [Ventolin Hfa 2 puffs INH Q6H PRN 06/20/20 06/20/20 Inhaler] Cefdinir 300 mg PO BID 7 Days #14 cap 06/20/20 Mirtazapine [Remeron] 7.5 mg PO QPM 06/20/20 06/20/20 Omeprazole Magnesium 20 mg PO DAILY 06/20/20 06/20/20 - PHYSICAL EXAM AT DISCHARGE General Appearance: positive: No acute distress, Alert Eyes Bilateral: positive: PERRL, EOMI ENT: positive: No signs of dehydration Neck: positive: No JVD, Trachea midline Respiratory: positive: Chest non-tender, No respiratory distress, Breath sounds nml. negative: Wheezes, Rales, Rhonchi Cardiovascular: positive: Regular rate & rhythm Abdomen: positive: Non-tender, No organomegaly, Nml bowel sounds, No distention Back: positive: Nml inspection Skin: positive: Color nml, No rash, Warm, Dry Extremities: positive: Non-tender, Full ROM, Nml appearance, No pedal edema Neurologic/Psychiatric: positive: Oriented x3, Mood/affect nml - LABS Result Diagrams: 06/20/20 12:49 06/20/20 05:07 - TIME SPENT Time Spent in Discharge (Minutes): 20
--- NOTE | 2020-06-20 14:02 | Discharge Plan ---
Discharge Plan Problem Reviewed?: Yes Disposition: 01 Home, Self Care Condition: Stable Prescriptions: Cefdinir 300 mg PO BID 7 Days #14 cap Diet: Cardiac Activity Restrictions: Activity as Tolerated Health Concerns: You presented to the ED with worsening left lower abdominal pain with radiation to the left lower back, nausea and vomiting. In the ED you had a urine analysis done which showed that you had a UTI. On your CBC your white blood cell count was 15 He was started on Rocephin 1 g IV daily and admitted to the hospital for observation. Over the few hours of monitoring your vitals have been stable. You have been afebrile. Consequently you are being discharged home with a prescription of cefdinir 300 mg p.o. twice daily for 7 days. Urine cultures are pending. If there are any significant findings on the cultures that warrant changes to your antibiotics we will contact you. This plan was explained to you and you are in agreement with the plan. Plan of Treatment: You presented to the ED with worsening left lower abdominal pain with radiation to the left lower back, nausea and vomiting. In the ED you had a urine analysis done which showed that you had a UTI. On your CBC your white blood cell count was 15 He was started on Rocephin 1 g IV daily and admitted to the hospital for observation. Over the few hours of monitoring your vitals have been stable. You have been afebrile. Consequently you are being discharged home with a prescription of cefdinir 300 mg p.o. twice daily for 7 days. Urine cultures are pending. If there are any significant findings on the cultures that warrant changes to your antibiotics we will contact you. This plan was explained to you and you are in agreement with the plan. Care Goals: You presented to the ED with worsening left lower abdominal pain with radiation to the left lower back, nausea and vomiting. In the ED you had a urine analysis done which showed that you had a UTI. On your CBC your white blood cell count was 15 He was started on Rocephin 1 g IV daily and admitted to the hospital for observation. Over the few hours of monitoring your vitals have been stable. You have been afebrile. Consequently you are being discharged home with a prescription of cefdinir 300 mg p.o. twice daily for 7 days. Urine cultures are pending. If there are any significant findings on the cultures that warrant changes to your antibiotics we will contact you. This plan was explained to you and you are in agreement with the plan. Assessment: You presented to the ED with worsening left lower abdominal pain with radiation to the left lower back, nausea and vomiting. In the ED you had a urine analysis done which showed that you had a UTI. On your CBC your white blood cell count was 15 He was started on Rocephin 1 g IV daily and admitted to the hospital for observation. Over the few hours of monitoring your vitals have been stable. You have been afebrile. Consequently you are being discharged home with a prescription of cefdinir 300 mg p.o. twice daily for 7 days. Urine cultures are pending. If there are any significant findings on the cul tures that warrant changes to your antibiotics we will contact you. This plan was explained to you and you are in agreement with the plan. No Smoking: If you smoke, Please STOP! Call for help. Follow-up with: Johanna Mg MD [Primary Care Provider] -
[2020-06-20 15:33] VITALS: BP 112/48
[2020-06-20] MEDS ORDERED: cefTRIAXone 1 GM in SODIUM CHLORIDE 0.9% MINIBAG 100 ML IV SCH (21:00)
[2020-06-20] MEDS ORDERED: PRAVASTATIN 10 MG TABLET PO SCH (21:00)
== END 2020-06-20 15:25 | disposition home or self-care (01) ==
LOC: ED 21:42 → MS2 06-20 00:02
PROVIDERS: ADMIT Specialist; ATTEND Internal Medicine
DX: N10 Acute pyelonephritis (principal); J44.9 Chronic obstructive pulmonary disease, unspecified; I48.20 Chronic atrial fibrillation, unspecified; J96.11 Chronic respiratory failure with hypoxia; I10 Essential (primary) hypertension; D64.9 Anemia, unspecified; Z99.81 Dependence on supplemental oxygen; Z79.01 Long term (current) use of anticoagulants; Z86.711 Personal history of pulmonary embolism; Z66 Do not resuscitate; Z20.822 Contact with and (suspected) exposure to COVID-19; Z98.890 Other specified postprocedural states; Z87.891 Personal history of nicotine dependence; Z79.899 Other long term (current) drug therapy
CPT/HCPCS: 36415; 74177; 80048; 80053; 81001; 83605; 83690; 85025; 85610; 87086; 87631; 93005; 96374; 96375; 99284; 99285; A9270; G0378; J7120; Q9967; 0202U; 81003